=== PATIENT | male | born 1995 | race Caucasian/White ===

== ENCOUNTER 2017-11-04 12:20 | Day surgery (SDC) | payer OTHER ==
[2017-11-04] MEDS ORDERED: no medications (12:44)
[2017-11-04] MEDS ORDERED: LACTATED RINGERS 1,000 ML IV SCH (12:44)
[2017-11-04] MEDS ORDERED: FENTANYL PF 100 MCG/2ML ONE ×2 (13:44→15:41)
[2017-11-04] MEDS ORDERED: MIDAZOLAM 1 MG/ML, 2ML ONE (13:44)
[2017-11-04] MEDS ORDERED: ROPIvacaine/PF 0.5%, 30 ML ONE (15:13)
[2017-11-04] MEDS ORDERED: LIDOCAINE 1%-EPI 1:100K, 30ML ONE (15:13)
[2017-11-04] MEDS ORDERED: PROPOFOL 50 ML ONE (15:39)
[2017-11-04] MEDS ORDERED: ONDANSETRON 2MG/ML, 2ML ONE (15:45)
[2017-11-04] MEDS ORDERED: DEXAMETHASONE 4 MG/ML, 1ML ONE (15:45)
[2017-11-04] MEDS ORDERED: LIDOCAINE 1%-EPI 1:100K, 30ML INFIL ONE (15:54)
[2017-11-04] MEDS ORDERED: ROPIvacaine/PF 0.5%, 30 ML INFIL ONE (15:55)
[2017-11-04] MEDS ORDERED: PROPOFOL 10 MG/ML, 20ML ONE (16:00)
[2017-11-04] MEDS ORDERED: CEFAZOLIN 1,000 MG ONE (16:00)
[2017-11-04] MEDS ORDERED: OXYcodone 5 MG/5 ML ORAL.SOL UDC ONE (17:14)
[2017-11-04] MEDS ORDERED: MEPERIDINE/PF 25MG/0.5ML ONE (17:15)
[2017-11-04] MEDS ORDERED: MEPERIDINE/PF 25MG/0.5ML IVPush PRN (17:30)
[2017-11-04] MEDS ORDERED: MIDAZOLAM 1 MG/ML, 2ML IV PRN (17:30)
[2017-11-04] MEDS ORDERED: PROMETHAZINE 25 MG SUPP PR PRN (17:30)
[2017-11-04] MEDS ORDERED: ONDANSETRON ODT 8 MG PO PRN (17:30)
[2017-11-04] MEDS ORDERED: MORPHINE SULFATE 4 MG/ML, 1ML IVPush PRN (17:30)
[2017-11-04] MEDS ORDERED: FENTANYL PF 100 MCG/2ML IV PRN (17:30)
[2017-11-04] MEDS ORDERED: DIPHENHYDRAMINE 50 MG/ML, 1ML IVPush PRN (17:30)
[2017-11-04] MEDS ORDERED: PROCHLORPERAZINE 5 MG/ML, 2ML IV PRN (17:30)
[2017-11-04] MEDS ORDERED: EPHEDRINE 50 MG/ML, 1ML IM PRN (17:30)
[2017-11-04] MEDS ORDERED: PLEASE ENTER HEIGHT AND WEIGHT MC SCH (17:30)
[2017-11-04] MEDS ORDERED: PROMETHAZINE 25 MG/ML, 1ML IV PRN (17:30)
[2017-11-04] MEDS ORDERED: OXYcodone 5 MG/5 ML ORAL.SOL UDC PO PRN (17:30)
[2017-11-04] MEDS ORDERED: PROMETHAZINE 12.5 MG SUPP PR PRN (17:30)
== END 2017-11-04 19:15 | disposition home or self-care (01) ==
LOC: OUT 12:20
PROVIDERS: ATTEND Orthopaedic Surgery
DX: S83.014A Lateral dislocation of right patella, initial encounter (principal); S83.281A Other tear of lateral meniscus, current injury, right knee, initial encounter; X58.XXXA Exposure to other specified factors, initial encounter; M23.41 Loose body in knee, right knee; Y93.89 Activity, other specified; Y92.89 Other specified places as the place of occurrence of the external cause; Y99.8 Other external cause status; Z88.1 Allergy status to other antibiotic agents; Z88.8 Allergy status to other drugs, medicaments and biological substances
CPT/HCPCS: 27418; 29881; 64447; 73560; C1713; J0690; J1100; J2175; J2250; J2405; J2704; J2795; J3010; J3490